=== PATIENT | female | born 1945 | race Caucasian/White ===

== ENCOUNTER → 2016-11-10 | Outpatient (CLI) | payer OTHER, BC ==
[~2016-11-10] MED LIST: ACET325T96 PO; ADVIN25/60 INH; ALBU18002 INH; AMLO10CA PO; ARTI1SOL8 OPB; ASPI-435 PO; CALC500C70 PO; CARV12.5 PO; COEN1CAP28 PO; CYAN30003 SL; DULA0.5I SQ; FLUT0.15 NAE; GLIM1TAB2 PO; HYDR2.5L TOP; HYDR25TA5 PO; LATA0.009 OPB; LORA-741 PO; MULT-506 PO; NXM/40 PO; OXYC-643 PO; VTMD1000 PO
[2016-11-10 17:48] LABS: BASO % 0.3 %; BASO ABS # 0.03 K/uL (0-0.2); COMPLETE YES; EOS % 1.4 %; HEMATOCRIT 40.2 % (37-47); IG% 0.4 %; LYMPH % 31.1 %; LYMPH ABS # 3.57 K/uL (1.2-3.4); MEAN CELL VOLUME 80.9 fL (80-100); MEAN CORPUSCULAR HGB CONC 32.1 g/dl (32-36); MONO % 6.4 %; NEUT % 60.4 %; PLATELET COUNT 227 K/uL (130-400); RED BLOOD COUNT 4.97 M/uL (4.2-5.4); WHITE BLOOD COUNT 11.48 K/uL (4.8-10.8)
[2016-11-10 17:51] LABS: ALT/SGPT 46 U/L (12-78); AST/SGOT 28 U/L (15-37); BLOOD UREA NITROGEN 17 mg/dl (7-18); BUN/CREATININE RATIO 18.9 (10-20); CARBON DIOXIDE 31 mmol/L (21-32); CHLORIDE 103 mmol/L (98-107); CHOLESTEROL 241 mg/dl (0-200); GLUCOSE 130 mg/dl (70-99); POTASSIUM 4.3 mmol/L (3.5-5.1); SODIUM 140 mmol/L (136-145); TRIGLYCERIDES 213 mg/dl (0-150); VERY LOW DENSITY LIPOPROT CALC 43 mg/dl
[2016-11-10 18:06] LABS: ALB/GLOB RATIO 0.9 (0.9-2); ALKALINE PHOSPHATASE 81 U/L (45-117); CHOLESTEROL/HDL RATIO 3.7; HDL CHOLESTEROL 65 mg/dl; LDL CHOLESTEROL CALCULATED 133 mg/dl
[2016-11-10 18:08] LABS: RATIO 6.9 mcg/mg (0-30.0)
[2016-11-11 06:12] LABS: ESTIMATED AVERAGE GLUCOSE 217 mg/dl; HA1C FLAG Normal (Normal)
== END | disposition home or self-care (01) ==
LOC: C.LABMFLN 07:46
PROVIDERS: ATTEND Family Medicine
DX: E11.9 Type 2 diabetes mellitus without complications (principal); E78.5 Hyperlipidemia, unspecified

== ENCOUNTER → 2017-01-03 | Outpatient (CLI) | payer OTHER, BC ==
[~2017-01-03] MED LIST changes: +ACET-24 PO; +RXC5 PO
[2017-01-03 13:40] LABS: ALB/GLOB RATIO 0.9 (0.9-2); ALKALINE PHOSPHATASE 55 U/L (45-117); ALT/SGPT 28 U/L (12-78); AST/SGOT 17 U/L (15-37); BLOOD UREA NITROGEN 11 mg/dl (7-18); BUN/CREATININE RATIO 14.3 (10-20); C-REACTIVE PROTEIN < 0.29 mg/dl (0-0.29); CALCIUM 8.5 mg/dl (8.5-10.1); CARBON DIOXIDE 34 mmol/L (21-32); CHLORIDE 109 mmol/L (98-107); CHOLESTEROL 226 mg/dl (0-200); CHOLESTEROL/HDL RATIO 3.9; CREATININE 0.78 mg/dl (0.60-1.20); GLUCOSE 151 mg/dl (70-99); HDL CHOLESTEROL 58 mg/dl; LDL CHOLESTEROL CALCULATED 136 mg/dl; POTASSIUM 4.5 mmol/L (3.5-5.1); SODIUM 146 mmol/L (136-145); TRIGLYCERIDES 158 mg/dl (0-150); VERY LOW DENSITY LIPOPROT CALC 32 mg/dl
[2017-01-03 13:56] LABS: BASO % 0.2 %; BASO ABS # 0.01 K/uL (0-0.2); EOS % 1.4 %; HEMATOCRIT 36.3 % (37-47); IG% 0.3 %; LYMPH % 35.2 %; LYMPH ABS # 2.34 K/uL (1.2-3.4); MEAN CELL VOLUME 83.1 fL (80-100); MEAN CORPUSCULAR HEMOGLOBIN 26.8 pg (25-34); MEAN PLATELET VOLUME 9.8 fL (7.4-10.4); MONO % 6.9 %; PLATELET COUNT 191 K/uL (130-400); RED BLOOD COUNT 4.37 M/uL (4.2-5.4); WHITE BLOOD COUNT 6.64 K/uL (4.8-10.8)
[2017-01-03 14:00] LABS: COMPLETE YES; MEAN CORPUSCULAR HGB CONC 32.2 g/dl (32-36)
== END | disposition home or self-care (01) ==
LOC: C.LABMFLN 08:39
PROVIDERS: ATTEND Internal Medicine Rheumatology
DX: M06.9 Rheumatoid arthritis, unspecified (principal)

== ENCOUNTER → 2017-02-22 | Outpatient (CLI) | payer OTHER, BC ==
[2017-02-22 13:43] LABS: ESTIMATED AVERAGE GLUCOSE 166 mg/dl; HA1C FLAG Normal (Normal)
[2017-02-22 13:54] LABS: BLOOD UREA NITROGEN 13 mg/dl (7-18); BUN/CREATININE RATIO 14.7 (10-20); CALCIUM 9.3 mg/dl (8.5-10.1); CARBON DIOXIDE 29 mmol/L (21-32); CHLORIDE 106 mmol/L (98-107); CREATININE 0.85 mg/dl (0.60-1.20); GLUCOSE 134 mg/dl (70-99); PHOSPHORUS 3.1 mg/dl (2.5-4.9); POTASSIUM 4.2 mmol/L (3.5-5.1); SODIUM 141 mmol/L (136-145)
== END | disposition home or self-care (01) ==
LOC: C.LABMFLN 09:59
PROVIDERS: ATTEND Family Medicine
DX: E11.9 Type 2 diabetes mellitus without complications (principal)

== ENCOUNTER → 2017-03-06 | Outpatient (CLI) | payer OTHER, BC | END | disposition home or self-care (01) | LOC: C.LABMFLN 14:10 | PROVIDERS: ATTEND Physician Assistant | DX: R30.0 Dysuria (principal) ==

== ENCOUNTER → 2017-03-28 | Outpatient (CLI) | payer OTHER, BC ==
[2017-03-28 13:42] LABS: BLOOD UREA NITROGEN 12 mg/dl (7-18); BUN/CREATININE RATIO 15.7 (10-20); CALCIUM 8.8 mg/dl (8.5-10.1); CARBON DIOXIDE 29 mmol/L (21-32); CHLORIDE 105 mmol/L (98-107); CREATININE 0.79 mg/dl (0.60-1.20); GLUCOSE 226 mg/dl (70-99); PHOSPHORUS 3.4 mg/dl (2.5-4.9); POTASSIUM 4.2 mmol/L (3.5-5.1); SODIUM 139 mmol/L (136-145)
== END | disposition home or self-care (01) ==
LOC: C.LABMFLN 07:58
PROVIDERS: ATTEND Family Medicine
DX: I10 Essential (primary) hypertension (principal)

== ENCOUNTER → 2017-04-06 | Outpatient (CLI) | payer OTHER, BC ==
--- NOTE | 2017-04-06 11:39 | DIAGNOSTIC IMAGING REPORT ---
CHEST 2 VIEWS ROUTINE HISTORY: 71 years-old Female R06.02 Exertional shortness of [id number] COMPARISON: Cervical spine radiographs 07/03/2016 TECHNIQUE: Frontal and lateral views of the chest FINDINGS: Cardiac mediastinal and hilar silhouettes are within normal limits. There is atherosclerosis of the aorta. No pneumothorax, pleural effusion, focal airspace consolidation or overt pulmonary edema. There is multilevel endplate spurring of the spine. Multilevel intervertebral disc space narrowing is also present. Patient obesity noted. IMPRESSION: No acute cardiopulmonary process. The above report was generated using voice recognition software. It may contain grammatical, syntax or spelling errors. Electronically signed by: James Galloway M.D. 04/06/2017 11:37 AM Dictated Date/Time: 04/06/2017 11:36 AM
--- NOTE | 2017-04-06 11:48 | DIAGNOSTIC IMAGING REPORT ---
CT OF THE HEAD WITHOUT CONTRAST CLINICAL HISTORY: Severe headache. COMPARISON STUDY: No previous studies for comparison. CT DOSE: 614.27 mGy.cm TECHNIQUE: Helical axial images of the head were obtained without IV contrast. Automated exposure control was utilized for the study. A dose lowering technique was utilized adhering to the principles of ALARA. FINDINGS: No acute intracranial hemorrhage, midline shift or mass effect is present. Brain volume is normal for age. Ventricular system is normal. Basilar cisterns are patent. Mcmahan-white differentiation is maintained. There are no findings to suggest acute dural sinus thrombosis or acute territorial infarct. An 8 mm hypodensity within the posterior left basal ganglia could reflect a prominent perivascular space or old lacunar infarct. There are no significant calvarial abnormalities. IMPRESSION: No acute intracranial findings. Electronically signed by: Tristen Parra M.D. 04/06/2017 11:47 AM Dictated Date/Time: 04/06/2017 11:44 AM
[2017-04-06 12:31] LABS: BASO % 0.1 %; BASO ABS # 0.01 K/uL (0-0.2); COMPLETE YES; EOS % 1.1 %; HEMATOCRIT 39.1 % (37-47); IG% 0.1 %; LYMPH % 24.1 %; LYMPH ABS # 1.74 K/uL (1.2-3.4); MEAN CELL VOLUME 85.6 fL (80-100); MEAN CORPUSCULAR HEMOGLOBIN 26.9 pg (25-34); MEAN CORPUSCULAR HGB CONC 31.5 g/dl (32-36); MEAN PLATELET VOLUME 10.1 fL (7.4-10.4); MONO % 6.2 %; NEUT % 68.4 %; PLATELET COUNT 209 K/uL (130-400); RED BLOOD COUNT 4.57 M/uL (4.2-5.4); WHITE BLOOD COUNT 7.21 K/uL (4.8-10.8)
[2017-04-06 13:13] LABS: BLOOD UREA NITROGEN 13 mg/dl (7-18); BUN/CREATININE RATIO 14.4 (10-20); CALCIUM 8.8 mg/dl (8.5-10.1); CARBON DIOXIDE 27 mmol/L (21-32); CHLORIDE 106 mmol/L (98-107); CREATININE 0.92 mg/dl (0.60-1.20); GLUCOSE 206 mg/dl (70-99); POTASSIUM 3.8 mmol/L (3.5-5.1); SODIUM 141 mmol/L (136-145)
[2017-04-06 13:18] LABS: PHOSPHORUS 3.6 mg/dl (2.5-4.9)
== END | disposition home or self-care (01) ==
LOC: C.CTS 10:39
PROVIDERS: ATTEND Family Medicine
DX: R51 Headache (principal); R06.02 Shortness of breath

== ENCOUNTER → 2017-04-18 | Outpatient (CLI) | payer OTHER, BC ==
[~2017-04-18] MED LIST changes: +REGADENOSON 0.4 MG/5 ML SYR ONE
== END | disposition home or self-care (01) ==
LOC: C.NUCL 09:07
PROVIDERS: ATTEND Family Medicine
DX: R07.89 Other chest pain (principal); R06.02 Shortness of breath

== ENCOUNTER 2017-05-17 09:14 | Inpatient (IN) | payer OTHER, BC ==
--- NOTE | 2017-04-18 18:49 | Myocardial Perfusion Study ---
Myocardial Perfusion Study Rpt Myocardial Perfusion Study Rpt Date of Service 04/18/2017 Myocardial Perfusion Study Rpt Procedure: 1. Myocardial perfusion study performed in multiple views/images 2. Lexiscan pharmacologic stress ECG Indications: 1. Atypical chest pain 2. Dyspnea with exertion Consent: Informed written consent was obtained prior to the procedure. Ordering physician: Dr. Hale Procedural details: For the stress portion of the study, Lexiscan 0.4 mg was intravenously administered followed by a saline flush. This was followed by 32.2 mCi of technetium 99m Cardiolite, injected at 11:30 a.m. on 04/18/2017. 30 minutes following the injection, imaging of the heart was performed in multiple projections. For the rest portion of the study, 10.3 mCi technetium 99m Cardiolite was injected intravenously at 9:45 a.m. on 04/18/2017. 1 hour following the injection, imaging of the heart was performed in the same projections. Lexiscan stress ECG: Resting ECG demonstrated: Sinus rhythm at 80 bpm Maximum heart rate: 97 bpm Resting blood pressure: 144/70 mmHg Maximum blood pressure: 147/70 mmHg Maximal, age-predicted heart rate: 65 % Significant ST changes: None Arrhythmia: None Symptoms: No chest pain reported. Findings: Rotating raw imaging demonstrated no significant lung uptake. There is no significant motion artifact. Heart size appeared normal. Myocardial perfusion demonstrated a very small area of mildly reduced uptake involving the distal anteroseptum which appeared to be fixed in post stress and rest imaging. With normal wall motion, this suggests artifact. There is no significant reversible defect to suggest ischemia. Ejection fraction: 70 % Wall motion: Normal No significant transient ischemic dilation. Impression: 1. No significant ischemic change suggested with Lexiscan myocardial perfusion study. 2. Very small distal anteroseptal fixed defect may represent attenuation artifact given normal wall motion. 3. No significant infarct suggested. 4. Hyperdynamic LV systolic function. EF 70%. 5. Normal wall motion. 6. No chest pain reported. 7. Nondiagnostic Lexiscan ECG.
[2017-04-25 11:26] VITALS: BMI 40.0
--- NOTE | 2017-04-25 12:06 | PAT Medication Instructions ---
Service Date Apr 25, 2017. Current Home Medication List Acetaminophen Tab (Tylenol), 650 MG PO Q6 PRN for Pain Albuterol Sulfate (Proair Respiclick), 2 PUFF INH Q4 PRN for SOB/Wheezing Artificial Tear Solution ([facility]vs Natural Tears 0.1-0.3 %), 1 DROP OPB UD PRN for DRY EYES Aspirin (Aspirin 81), 1 TAB PO QAM Calcium/Vitamin D (Os-Johnie 500 Plus D), 1 TAB PO QAM Cholecalciferol (Vitamin D3), 2,000 UNITS PO QAM Coenzyme Q10 (Ubidecarenone) (Co Q10), 200 MG PO QAM Cyanocobalamin (Vitamin B12), 1 TAB SL QAM Dulaglutide (Trulicity), 1 DOSE SQ WEEKLY Esomeprazole Magnesium (Nexium), 40 MG PO QAM Fluticasone Prop/Salmeterol (Advair Diskus 250/50 60 Dose), 1 PUFF INH BID Fluticasone Propionate (Nasal) (Flonase Allergy Relief), 2 SPRAY GENESIS DAILY PRN for PRN Glimepiride (Glimepiride), 0.5 TAB PO QAM Hydrochlorothiazide (Hydrochlorothiazide), 12.5 MG PO QAM Hydrocortisone (Topical) (Hydrocortisone), 1 APPLN TOP BID PRN for RASH Latanoprost (Xalatan 0.005% Oph Myrtle), 1 DROPS OPB HS Lorazepam (Ativan), 0.5 MG PO TID PRN for Anxiety Multivitamin (Multivitamin), 1 TAB PO QPM Oxycodone/Acetaminophen 5MG/325MG (Oxycodone/Acetaminophen 5MG/325MG), 1 TABLET PO Q4H PRN for Pain Medication Instructions For Your Scheduled Surgery -Continue as directed: Dulaglutide (Trulicity), 1 DOSE SQ WEEKLY - Hold the following medications 2 weeks prior to surgery: Coenzyme Q10 (Ubidecarenone) (Co Q10), 200 MG PO QAM - Hold the following medications 24 hours prior to surgery: Hydrocortisone (Topical) (Hydrocortisone), 1 APPLN TOP BID PRN for RASH - Hold the following medications the morning of surgery: Glimepiride (Glimepiride), 0.5 TAB PO QAM Hydrochlorothiazide (Hydrochlorothiazide), 12.5 MG PO QAM Calcium/Vitamin D (Os-Johnie 500 Plus D), 1 TAB PO QAM Cholecalciferol (Vitamin D3), 2,000 UNITS PO QAM Cyanocobalamin (Vitamin B12), 1 TAB SL QAM - Take the following medications the morning of surgery with a sip of water: Oxycodone/Acetaminophen 5MG/325MG (Oxycodone/Acetaminophen 5MG/325MG), 1 TABLET PO Q4H PRN for Pain (as needed up to four hours before surgery) Esomeprazole Magnesium (Nexium), 40 MG PO QAM Acetaminophen Tab (Tylenol), 650 MG PO Q6 PRN for Pain (as needed up to four hours before surgery) Albuterol Sulfate (Proair Respiclick), 2 PUFF INH Q4 PRN for SOB/Wheezing ( Use if needed, and BRING WITH YOU THE MORNING OF THE SURGERY) Artificial Tear Solution (Cvs Natural Tears 0.1-0.3 %), 1 DROP OPB UD PRN for DRY EYES (if needed) Aspirin (Aspirin 81), 1 TAB PO QAM Lorazepam (Ativan), 0.5 MG PO TID PRN for Anxiety Fluticasone Propionate (Nasal) (Flonase Allergy Relief), 2 SPRAY GENESIS DAILY PRN for PRN Fluticasone Prop/Salmeterol (Advair Diskus 250/50 60 Dose), 1 PUFF INH BID - Take the following medications as scheduled the night before surgery: Oxycodone/Acetaminophen 5MG/325MG (Oxycodone/Acetaminophen 5MG/325MG), 1 TABLET PO Q4H PRN for Pain Multivitamin (Multivitamin), 1 TAB PO QPM Latanoprost (Xalatan 0.005% Oph Myrtle), 1 DROPS OPB HS Artificial Tear Solution (Cvs Natural Tears 0.1-0.3 %), 1 DROP OPB UD PRN for DRY EYES Albuterol Sulfate (Proair Respiclick), 2 PUFF INH Q4 PRN for SOB/Wheezing Acetaminophen Tab (Tylenol), 650 MG PO Q6 PRN for Pain Lorazepam (Ativan), 0.5 MG PO TID PRN for Anxiety Fluticasone Propionate (Nasal) (Flonase Allergy Relief), 2 SPRAY GENESIS DAILY PRN for PRN Fluticasone Prop/Salmeterol (Advair Diskus 250/50 60 Dose), 1 PUFF INH BID If you have any questions please call us at [phone] or [phone] or [phone]
[2017-04-25 13:12] LABS: URINE APPEARANCE CLEAR (CLEAR); URINE BILIRUBIN NEG (NEG); URINE COLOR YELLOW; URINE NITRITE NEG (NEG); URINE PH 6.5 (4.5-7.5); URINE SPECIFIC GRAVITY 1.019 (1.000-1.030); UROBILINOGEN NEG (NEG); ZZUR CULT IF INDIC CLEAN CATCH NO
[2017-04-25 13:35] LABS: MANUAL MICROSCOPIC REQUIRED? NO; REVIEW REQ? NO
[2017-04-25 13:36] LABS: ESTIMATED AVERAGE GLUCOSE 171 mg/dl; HA1C FLAG Normal (Normal)
--- NOTE | 2017-05-16 17:18 | HISTORY & PHYSICAL EXAMINATION ---
DATE OF ADMISSION: 05/17/2017 CHIEF COMPLAINT: Chronic right shoulder pain. HISTORY OF PRESENT ILLNESS: This is a 71-year-old female patient of Dr. Garay'cuco complaining of chronic right shoulder pain, longstanding, now progressively getting worse. She has failed conservative treatment including intraarticular injections and conservative treatment for approximately 1 year. The patient has been diagnosed with end-stage osteoarthritis, per clinical and radiographic exams of her right shoulder and wishes to proceed with a right total shoulder arthroplasty. PAST MEDICAL HISTORY: Hypertension, asthma, sleep apnea with the use of CPAP, diabetes mellitus, rheumatoid arthritis, osteoarthritis, spine problems, neck problems, sciatica, acid reflux, and obesity. SOCIAL HISTORY: Nonsmoker, nondrinker. FAMILY HISTORY: Noncontributory. REVIEW OF SYSTEMS: The patient complains of chronic right shoulder pain. Otherwise, denies any shortness of breath, chest pain, nausea, vomiting or any other joint complaints. PAST SURGICAL HISTORY: Includes a carpal tunnel surgery and tonsillectomy. MEDICATIONS: Include: 1. Advair Diskus 250/50 one puff b.i.d. 2. Ventolin HFA 109 mcg inhalation aerosol 2 puffs every 4-6 hours as needed. 3. Esomeprazole magnesium 40 mg daily. 4. Vitamin D3 daily. 5. Vitamin B12 daily, CoQ10 daily, and Calcium daily. 6. Latanoprost 0.005% ophthalmic solution in both eyes at bedtime. 7. Lorazepam 0.5 mg b.i.d. p.r.n. 8. Triamcinolone acetonide 55 mcg. 9. Aerosol 2 sprays each nostril daily. 10. Fluticasone 50 mcg 2 sprays each nostril daily. 11. Nystatin as needed. 12. Hydrochlorothiazide 12.5 mg daily. 13. Glimepiride 1 mg daily. 14. Trulicity 1.5 mg per 0.5 mL solution injection weekly. 15. Hydrocortisone 2.5% external cream b.i.d. to affected area. 16. Artificial tears as needed. 17. Multivitamin daily. 18. Oxycodone a day as needed. 19. Nasacort allergy 2 puffs daily. 20. Aspirin 81 mg daily. ALLERGIES: INCLUDE BIAXIN, LEVAQUIN, BACTRIM, OXYBUTYNIN, PENICILLINS AND STATINS. PHYSICAL EXAMINATION: GENERAL: Well-developed, well-nourished 71-year-old female in no acute distress. She is alert and oriented x3 and pleasant. HEENT: Normocephalic, atraumatic. Extraocular motions are intact. Pupils are equal and reactive to light. HEART: Regular rate and rhythm, no murmurs appreciated. LUNGS: Clear. ABDOMEN: Soft and nontender, bowel sounds present. EXTREMITIES: Right shoulder reveals positive crepitation with passive range of motion. She has active range of motion of 0-170. She has 4/5 strength globally. NEUROLOGIC: Neurovascularly, she is intact in her right upper extremity. DIAGNOSES: Right shoulder end-stage osteoarthritis with a history of hypertension, asthma, chronic obstructive pulmonary disease with the use of CPAP, diabetes mellitus, rheumatoid arthritis, osteoarthritis, spine problems, neck problems, sciatica, acid reflux, and obesity. PLAN: The patient was advised of her diagnosis. Indications, risks, benefits, and postop course have all been reviewed. The patient wishes to proceed with a right total shoulder arthroplasty. Necessary consent forms, preoperative testing and clearances will be obtained.
[2017-05-17] VITALS (7 sets, daily range): BP systolic 131–147; BP diastolic 63–91; PULSE 73–93; TEMP 36.4–37.1; O2SAT 96–100; Ht 162.6 cm; Wt 107.5 kg
[~2017-05-17] VITALS: Ht 162.6 cm; Wt 107.5 kg
[~2017-05-17 09:14] MED LIST changes: -ACET-24 PO; +ACETAMINOPHEN 500 MG TAB PO SCH; -AMLO10CA PO; +ATROPINE SULFATE 0.1 MG/ML 5ML SYR IV PRN; -CARV12.5 PO; +CeleBREX 200 MG CAP PO SCH; +EpHEDrine SULFATE INJ 50 MG/ML AMP IV PRN; +FAMOTIDINE 20 MG TAB PO SCH; +FENTANYL CITRATE INJ 50 MCG/1 ML 2 ML VIAL IV PRN; +GABAPENTIN 300 MG CAP PO SCH; +LACTATED RINGER'S 1000ML 1,000 ML IV SCH; +LACTATED RINGER'S 1000ML IV SCH; +METOCLOPRAMIDE HCL 10 MG TAB PO SCH; +ONDANSETRON INJ 2 MG/ML 2 ML VIAL IV PRN; -REGADENOSON 0.4 MG/5 ML SYR ONE; +ROPIVACAINE 0.5% 5 MG/ML 30 ML VIAL ONE; -RXC5 PO; +VANCOMYCIN INJ 1,500 MG in SODIUM CHLORIDE 0.9% 500ML 500 ML IV SCH
[2017-05-17] MEDS ORDERED: FENTANYL CITRATE INJ 50 MCG/1 ML 2 ML VIAL ONE ×2 (11:08→15:28)
[2017-05-17] MEDS ORDERED: NEOSTIGMINE METHYLSULFATE 5 MG/5 ML SYR ONE (11:08)
[2017-05-17] MEDS ORDERED: MIDAZOLAM HCL 1 MG/ML 2ML VIAL ONE (11:08)
[2017-05-17] MEDS ORDERED: PROPOFOL IV EMULSION 10 MG/ML 20 ML VIAL IV ONE (11:08)
[2017-05-17] MEDS ORDERED: GLYCOPYRROLATE INJ 0.2 MG/ML VIAL ONE (11:08)
[2017-05-17] MEDS ORDERED: ROCURONIUM BROMIDE 10 MG/ML 5 ML VIAL IV ONE (11:08)
[2017-05-17] MEDS ORDERED: LIDOCAINE HCL 2% 2 ML VIAL (20MG/ML) ONE (11:08)
[2017-05-17] MEDS ORDERED: ONDANSETRON INJ 2 MG/ML 2 ML VIAL ONE (11:08)
[2017-05-17] MEDS ORDERED: DEXAMETHASONE SOD INJ 4 MG/ML VIAL ONE (11:08)
[2017-05-17] MEDS ORDERED: AMLO10CA PO (11:14)
[2017-05-17] MEDS ORDERED: CARV12.5 PO (11:14)
--- NOTE | 2017-05-17 12:00 | History & Physical Bridge Note ---
H&P Re-Evaluation Bridge Note: I have examined the patient, reviewed the History & Physical and in the interval since the performance of the History & Physical I have noted the following changes of clinical significance: No changes noted
[2017-05-17] MEDS ORDERED: BACITRACIN 50000 UNIT VIAL ONE (12:19)
[2017-05-17] MEDS ORDERED: EpINEphrine HCL INJ 1 MG/ML 5ML SYRINGE ONE (12:19)
--- NOTE | 2017-05-17 14:57 | [facility] Post Operative Brief Note ---
Immediate Operative Summary Operative Date May 17, 2017. Pre-Operative Diagnosis Right Shoulder End-Stage Osteoarthritis,morbid obesity bmi 40.7 Post-Operative Diagnosis Right Shoulder End-Stage Osteoarthritis,chronic biceps tenosynovitis bicipital groove bone spurs,morbid obesity Procedure(s) Performed Right Total Shoulder Arthroplasty,biceps tenodesis,increased difficulty due to obesity Surgeon Dr. Sampson Garay Player Development Manager Surgeon(s) Bucky Martinez PA-C Estimated Blood Loss 25ML Findings grade 4 djd oa glenohumeral ,intact rtc ,biceps tenosynovitis chronic Specimens Permanent: A. Right Humeral Head Drains 2 hemovac Anesthesia general and regional Complication(s) None Disposition Recovery Room / PACU
[2017-05-17] MEDS ORDERED: SOD PHOSPHATE/SOD BIPHOSPHATE ENEMA 132 ML BTL PR PRN (15:15)
[2017-05-17] MEDS ORDERED: BISACODYL 10 MG SUPP PR PRN (15:15)
[2017-05-17] MEDS ORDERED: MoRPHine SULFATE 2 MG/ML CARP IV PRN (15:15)
[2017-05-17] MEDS ORDERED: METOCLOPRAMIDE HCL INJ 5 MG/ML 2 ML VIAL IV PRN (15:15)
[2017-05-17] MEDS ORDERED: LORAZEPAM 0.5 MG TAB PO PRN (15:15)
[2017-05-17] MEDS ORDERED: MAGNESIUM HYDROXIDE SUSP 30 ML UDC PO PRN (15:15)
[2017-05-17] MEDS ORDERED: ZOLPIDEM TARTRATE 5 MG TAB PO PRN (15:15)
[2017-05-17] MEDS ORDERED: ONDANSETRON INJ 2 MG/ML 2 ML VIAL IV PRN (15:15)
[2017-05-17] MEDS ORDERED: FLUTICASONE PROPIONATE NA SPR 16 GM BTL NAE PRN (15:15)
[2017-05-17] MEDS ORDERED: GLUCAGON FOR INJ 1 MG VIAL SQ PRN ×2 (15:30→18:00)
[2017-05-17] MEDS ORDERED: ARTIFICIAL TEARS OP SOLN OPB PRN ×2 (15:30)
[2017-05-17] MEDS ORDERED: ALBUTEROL HFA 8 GM INHALER INH PRN (15:30)
[2017-05-17] MEDS ORDERED: GLUCOSE 10 TABS/TUBE PO PRN ×2 (15:30→18:00)
[2017-05-17] MEDS ORDERED: GLUCOSE 40% GEL 15 GM TUBE PO PRN ×2 (15:30→18:00)
[2017-05-17] MEDS ORDERED: DEXTROSE 50% 50 ML SYR IV PRN ×2 (15:30→18:00)
--- NOTE | 2017-05-17 16:01 | DIAGNOSTIC IMAGING REPORT ---
R SHOULDER MIN 2 VIEWS ROUTINE CLINICAL HISTORY: Post shoulder surgery COMPARISON STUDY: None. FINDINGS: The patient is status post a right total shoulder arthroplasty. Hardware is intact. No acute fracture or dislocation. Skin temitope and surgical drains are in place. IMPRESSION: Status post right total shoulder arthroplasty. No evidence for hardware complication. Electronically signed by: Marquise Gutierrez M.D. 05/17/2017 3:59 PM Dictated Date/Time: 05/17/2017 3:58 PM
--- NOTE | 2017-05-17 16:09 | Anesthesiology Progress Note ---
Anesthesia Post Op Note Date & Time May 17, 2017 at 16:09 Vital Signs Pain Intensity: 2 Vital Signs Past 12 Hours Date Time Temp Pulse Resp B/P (MAP) Pulse Ox O2 Delivery O2 Flow Rate FiO2 05/17/17 16:00 36.2 76 16 130/57 100 Nasal Cannula 2 05/17/17 15:50 36.2 76 16 140/61 100 Nasal Cannula 2 05/17/17 15:40 77 16 146/72 100 Nasal Cannula 2 05/17/17 15:30 75 16 146/60 100 Oxymask 10 05/17/17 15:20 72 16 139/60 100 Oxymask 10 05/17/17 15:11 36.1 69 16 124/62 100 Oxymask 10 05/17/17 10:10 36.9 88 20 131/63 98 Room Air Notes Mental Status: alert / awake / arousable, participated in evaluation Pt Amnestic to Procedure: Yes Nausea / Vomiting: adequately controlled Pain: adequately controlled Airway Patency, RR, SpO2: stable & adequate BP & HR: stable & adequate Hydration State: stable & adequate Anesthetic Complications: no major complications apparent
--- NOTE | 2017-05-17 16:32 | OPERATIVE REPORT ---
DATE OF OPERATION: 05/17/2017 INDICATIONS: The patient is a 71-year-old female with chronic progressive osteoarthritis of her right glenohumeral joint. She has had extensive conservative management, several injections. She has failed all conservative management. Her x-rays demonstrate she is bone on bone in glenohumeral joint with an inferior humeral head osteophyte typical for her end-stage osteoarthritis. There is concentric wear of the glenoid. PREOPERATIVE DIAGNOSIS: End-stage glenohumeral osteoarthritis of the right shoulder and morbid obesity, BMI 40.7. POSTOPERATIVE DIAGNOSIS: Same including chronic bicipital tenosynovitis with bicipital groove bone spurs. PROCEDURE: Right total shoulder arthroplasty, biceps tenodesis and debridement bicipital bone groove spurs and increased difficulty morbid obesity, BMI 40.7. SURGEON: Dr. Garay. ENROLLMENT SERVICES DEAN: Bucky Martinez PA-C. ANESTHESIA: Regional block and general. OPERATIVE PROCEDURE: The patient was taken to the operative room, anesthetized with regional block and general anesthetic. She was positioned about a 30-40 degree beach chair position on the operating room table. She has TEDs and SCDs placed. She had a Phelps catheter placed at her request. She was very obese and a large pannus. We were able to translate her to the right side of the bed, placed a towel roll under medial border right scapula. We were able to manipulate the shoulder off the bed as necessary. We also placed her head on a foam headrest and we placed protective eyewear. Shoulder exam preop was 150 degrees of forward elevation, 90 degrees of adduction and 45 degrees of external rotation. She had bone on bone crepitation of the glenohumeral joint. He had very obese shoulder, arm and chest area. Her shoulder was then sterilely prepped and draped with ChloraPrep. An anterior deltopectoral approach was performed, skin incised sharply. A deep layer fat was divided down to the fascia. The subcutaneous bleeders were cauterized. The cephalic vein was dissected out and retracted laterally with the deltoid. The deltopectoral was dissected down to the clavipectoral fascia which was divided at the lateral margin conjoined tendon and strap muscle. This was divided up to the level of the CA ligament which was preserved. Subscapularis and supraspinatus rotator cuff bursa was all resected to visualize a complete intact rotator cuff. The biceps tendon had significant tenosynovitis over the biceps. We did release the inferior 1 cm of the pectoralis tendon for inferior exposure and excised the thickened tenosynovium around the biceps tendon and then as I dissected this up in the bicipital groove there was noted to be a large bicipital bone grew spurs so we debrided those. I went ahead and then tenodesed the biceps to the pectoralis tendon with [id number] #2 FiberWire, resected the biceps proximally. The circumflex vessels were identified, tied off with silk ties and divided laterally. The rotator interval was opened up and extended out to the lateral articular surface area. The joint effusion was evacuated. The muscle fibers of the subscapularis were split in the direction of their fibers at the level of the circumflex vessels inferiorly and they were divided down to the capsule. Then they were reflected up in the inferior capsule with a soft tissue Kitner elevator. The axial nerve was palpated and identified with tug test and protected with a blunt Hohmann retractor. Then the subscapularis was taken down with a transtendinous incision leaving a cuff of tissue for repair on the lesser tuberosity. The subscapularis was tagged with a #1 Vicryl suture. Then the capsule was released off the neck of the humerus exposing the large inferior humeral osteophytes which we resected with artist chisel and a rongeur to remove the fragments. The humeral head was down to eburnated exposed bone in the mid section of the humeral head. At this time, I retracted the humeral head posterior to the glenoid with a Fukuda retractor. Then I exposed the glenoid which was also completely eburnated bone with no articular cartilage on the glenoid. There was concentric type wear of the glenoid. The capsule was then released down to the glenoid. The anterior capsule was released off the glenoid. Then rotator interval capsule was released down to the anterior release creating a 360 degree release of the subscapularis. This subscapularis tendon and muscle was retracted anteriorly and Fukuda retractor was placed on the neck of the glenoid. The glenoid labrum was resected circumferentially and the biceps tendon was resected off the superior glenoid. I did a capsular release anterior inferiorly and posterior inferiorly using electrocautery on bone with the axillary nerve protected inferiorly. Then the humeral head was exposed with extension and external rotation. I made anatomic neck cut with an oscillating saw and then sized the humeral head to be a 46 mm diameter. The humerus was then retracted posterior to the glenoid exposing the glenoid. The glenoid was sized for a 44 mm diameter glenoid component. We used the Affiniti CortiLoc glenoid component from [employer] and the Ascend Flex humeral component from [employer]. The central drill hole was made into the glenoid followed by the glenoid reamer followed by widening the central hole for the central peg of the implant and then placing the guide for the peripheral peg holes, which were drilled and then after copious irrigation with antibiotic solution of bacitracin, the drill holes were dried and then packed with epinephrine soaked sponges. Then we mixed the Palacos G cement with vacuum mixing technique and then cemented the 44 mm Affiniti CortiLoc implant into position with the central peg press fit and peripheral peg cemented base of the central peg cemented. The implant was held in place until cement cured. All excess cement was cleared. Then attention was taken to the humerus preparation. Humerus was exposed again with extension and external rotation. Retractors were placed and centralizing awl was used followed by broach sizers up to a 5 which had appropriate fit and fill. The box osteotome was used and then we used broaches up to a 5 which had appropriate fit and fill. Then we went ahead with a 46 high offset trial head, then we did trial reduction and range of motion and stability was satisfactory. Then, the trials were removed. Transosseous #5 FiberWire sutures were placed around the lesser tuberosity in the hard bone of the bicipital groove. Then after more irrigation with antibiotic solution with bacitracin the final components were assembled taking note of the offset position. The 46 x 17 high offset Ascend Flex humeral head was assembled to the shortest Ascend Flex 5A stem and then this implant was impacted into the humerus with a tight press fit. The humerus was reduced to the glenoid. Stability was verified and then we went ahead and repaired the subscapularis with the #5 FiberWire sutures using Simone-Rickie suture technique. Then we did lateral soft tissue fixation with [id number] #2 FiberWire and the rotator interval was closed maximal external rotation with interrupted #2 FiberWire. The pectoralis was repaired with a aehyor-[id number] #2 FiberWire reinforced device. Tenodesis was sutured to the biceps again. The shoulder was taken through range of motion and then the patient had 160 degrees of forward elevation, 90 degrees adduction and 55-60 degrees of external rotation without any tension on the repair. The shoulder was stable. The wound was irrigated again and then 2 Hemovac drains were placed laterally. These were placed deep in the deltopectoral interval. Then we closed the deltopectoral interval with [id number] #1 Vicryl suture, subcutaneous tissues closed with interrupted 2-0 Vicryl, skin closed with temitope and sterile dressed were applied and the patient had about 25 mL blood loss at the time of procedure. Bucky Martinez PA-C was my practice assistant. He functioned as practice assistant for the entire procedure. He assisted in patient positioning, prepping, draping, arm positioning, instrument management, soft tissue retraction, and performed the subcutaneous and skin closure and will participate in postoperative care of the patient. I attest to the content of the Intraoperative Record and any orders documented therein. Any exceptions are noted below. GRETA
[2017-05-17] MEDS: INSULIN ASPART 100 UNITS/ML 3 ML PEN SC SCH ×3 (17:15→20:59)
[2017-05-17] MEDS ORDERED: HydrALAZINE HCL 20 MG/ML VIAL IV. PRN (18:00)
--- NOTE | 2017-05-17 18:07 | Medical Consult ---
Consultation Date of Consultation: May 17, 2017. Attending Physician: Sampson Garay M.D. Reason for Consultation: Medical management History of Present Illness This is a 71 y/o female with a history of HTN, HLD, FE, asthma, DM II, RA, anxiety and depression, glaucoma, h/o iron deficiency anemia and GERD who presents s/p right TSA with Dr. Garay on 05/17 for medical management. The patient reports feeling well. She does still have some numbness/tingling in her right fingers and complains of soreness on the right side of her neck. She also has a sore throat. She is tolerating a PO diet well and has a Phelps catheter in place. She denies passing gas or having a bowel movement yet postoperatively. The patient denies fevers, chills, sweats, chest pain, palpitations, claudication, cough, wheezing, shortness of breath, nausea, vomiting, abdominal pain, dysuria, hematuria, urinary retention, paralysis, weakness. Past Medical/Surgical History HTN HLD FE Asthma DM II RA Anxiety and depression Glaucoma GERD H/o ALYCIA Family History Cancer Diabetes mellitus Heart disease Hypertension Social History Smoking Status: Never Smoker Smokeless Tobacco Use: No Alcohol Use: occasionally Drug Use: none Marital Status: Housing Status: lives with significant other Occupation Status: retired Allergies Coded Allergies: Clarithromycin (Verified Allergy, Unknown, PT UNSURE OF RXN, OCCURED A CHILD, 05/17/17) Levofloxacin (Verified Allergy, Unknown, PT UNSURE OF RXN, 05/17/17) Oxybutynin (Verified Allergy, Unknown, CAUSED HIGH BP, 05/17/17) Penicillins (Verified Allergy, Unknown, UNSURE OF RXN, PT STATES OCCURED A CHILD, 05/17/17) Sulfamethoxazole w/Trimethoprim (Verified Allergy, Unknown, UNSURE OF RXN , PT STATES OCCURED A CHILD, 05/17/17) Statins (Verified Adverse Reaction, Mild, MUSCLE ACHES AND PAIN, 05/17/17) Current Inpatient Medications Current Inpatient Medications Medications (Trade) Dose Ordered Sig/Stan Route Start Time Stop Time Status Last Admin Dose Admin Lactated Ringer's 1,000 ml @ 60 mls/hr [id number] IV 05/17/17 06:00 05/17/17 22:39 05/17/17 10:11 60 MLS/HR Acetaminophen (Tylenol Tab) 1,000 mg PREOP PO 05/17/17 06:00 05/17/17 18:00 05/17/17 10:27 1,000 MG Celecoxib (CeleBREX CAP) 200 mg PREOP PO 05/17/17 06:00 05/17/17 18:00 Famotidine (Pepcid Tab) 20 mg PREOP PO 05/17/17 06:00 05/17/17 18:00 05/17/17 10:27 20 MG Gabapentin (Neurontin Cap) 300 mg PREOP PO 05/17/17 06:00 05/17/17 18:00 05/17/17 10:26 300 MG Metoclopramide HCl (Reglan Tab) 10 mg PREOP PO 05/17/17 06:00 05/17/17 18:00 05/17/17 10:27 10 MG Vancomycin HCl 1500 mg/Sodium Chloride 530 ml @ 200 mls/hr PREOP IV 05/17/17 06:00 05/18/17 05:59 05/17/17 10:10 200 MLS/HR Lactated Ringer's 1,000 ml @ 15 mls/hr Q24H IV 05/17/17 06:00 05/18/17 05:59 Aspirin (Ecotrin Tab) 81 mg QAM PO 05/18/17 09:00 06/17/17 08:59 Calcium/Vitamin D (Caltrate Plus Tab) 1 tab QAM PO 05/18/17 09:00 06/17/17 08:59 Carvedilol (Coreg Tab) 12.5 mg BID PO 05/17/17 21:00 06/16/17 20:59 Cholecalciferol (Vitamin D Tab) 1,000 inter.unit QAM PO 05/18/17 09:00 06/17/17 08:59 Salmeterol Xinafoate/ Fluticasone (Advair Diskus 250/50 Inh) 1 puff BID INH 05/17/17 21:00 06/16/17 20:59 Fluticasone Propionate (Flonase Nasal [place]) 2 sprays DAILY PRN GENESIS 05/17/17 15:15 06/16/17 15:14 Hydrochlorothiazide (Hydrochlorothiazide Tab) 12.5 mg QAM PO 05/18/17 09:00 06/17/17 08:59 Latanoprost (Xalatan Oph Soln) 1 drops HS OPB 05/17/17 21:00 06/16/17 20:59 Lorazepam (Ativan Tab) 0.5 mg TID PRN PO 05/17/17 15:15 06/16/17 15:14 Albuterol (Ventolin Hfa Inhaler) 2 puffs Q4 PRN INH 05/17/17 15:30 06/16/17 15:29 Benazepril HCl (Lotensin Tab) 20 mg QAM PO 05/18/17 09:00 06/17/17 08:59 Artificial Tears (Artificial Tears) 1 drops UD PRN OPB 05/17/17 15:30 06/16/17 15:29 Diphenhydramine HCl (Benadryl Cap) 25 mg Q8 PRN PO 05/17/17 15:15 06/16/17 15:14 Zolpidem Tartrate (Ambien Tab) 5 mg HSZ PRN PO 05/17/17 15:15 06/16/17 15:14 Metoclopramide HCl (Reglan Inj) 10 mg Q6H PRN IV 05/17/17 15:15 06/16/17 15:14 Ondansetron HCl (Zofran Inj) 4 mg Q6H PRN IV 05/17/17 15:15 06/16/17 15:14 Pantoprazole Sodium (Protonix Tab) 40 mg QAM PO 05/18/17 09:00 06/17/17 08:59 Potassium Chloride 10 meq/ Sodium Chloride 1,005 ml @ 100 mls/hr Q10H3M IV 05/17/17 16:00 05/18/17 15:59 Vancomycin HCl 1500 mg/Sodium Chloride 530 ml @ 125 mls/hr Q12H IV 05/17/17 22:00 05/18/17 02:15 Oxycodone HCl (Roxicodone Immediate Rel Tab) `1-2 TABS FOR PAIN `1 TAB... Q4H PRN PO 05/17/17 15:15 05/31/17 15:14 Acetaminophen (Tylenol Tab) 1,000 mg Q8 PO 05/17/17 22:00 06/16/17 21:59 Morphine Sulfate (MoRPHine SULFATE INJ) 2 mg Q2H PRN IV 05/17/17 15:15 05/31/17 15:14 Magnesium Hydroxide (Milk Of Magnesia Susp) 30 ml Q6H PRN PO 05/17/17 15:15 06/16/17 15:14 Bisacodyl (Dulcolax Supp) 10 mg DAILY PRN SC 05/17/17 15:15 06/16/17 15:14 Sodium Biphosphate/ Sodium Phosphate (Fleet Enema) 132 ml DAILY PRN SC 05/17/17 15:15 06/16/17 15:14 Docusate Sodium (coLACE CAP) 100 mg BID PO 05/17/17 21:00 06/16/17 20:59 Multivitamins (Multivitamin Tab) 1 tab DAILY PO 05/18/17 09:00 06/17/17 08:59 Insulin Aspart (novoLOG ASPART) SLIDING SCALE G... ACHS SC 05/17/17 16:00 06/16/17 15:59 Morphine Sulfate (MoRPHine SULFATE INJ) 4 mg Q2H PRN IV 05/17/17 15:30 05/31/17 15:29 Glucose (Glucose 40% Gel) 15-30 GRAMS 15 GRAMS... UD PRN PO 05/17/17 15:30 06/16/17 15:29 Glucose (Glucose Chew Tab) 4-8 Tablets 4 Tabl... UD PRN PO 05/17/17 15:30 06/16/17 15:29 Dextrose (Dextrose 50% 50ML Syringe) 25-50ML OF 50% DW IV FOR... UD PRN IV 05/17/17 15:30 06/16/17 15:29 Glucagon (Glucagon Inj) 1 mg UD PRN SQ 05/17/17 15:30 06/16/17 15:29 Amlodipine Besylate (Norvasc Tab) 10 mg QAM PO 05/18/17 09:00 06/17/17 08:59 Review of Systems See HPI for pertinent positives and negatives. All other systems reviewed and negative. Physical Exam Date Time Temp Pulse Resp B/P (MAP) Pulse Ox O2 Delivery O2 Flow Rate FiO2 05/17/17 17:14 36.4 80 16 147/76 (99) 100 Nasal Cannula 3.0 05/17/17 16:30 97 Nasal Cannula 2.0 05/17/17 16:30 36.5 73 18 136/73 (94) 97 Nasal Cannula 2.0 05/17/17 16:10 36.2 76 16 138/61 100 Nasal Cannula 2 05/17/17 16:00 36.2 76 16 130/57 100 Nasal Cannula 2 05/17/17 15:50 36.2 76 16 140/61 100 Nasal Cannula 2 05/17/17 15:40 77 16 146/72 100 Nasal Cannula 2 05/17/17 15:30 75 16 146/60 100 Oxymask 10 05/17/17 15:20 72 16 139/60 100 Oxymask 10 05/17/17 15:11 36.1 69 16 124/62 100 Oxymask 10 05/17/17 10:10 36.9 88 20 131/63 98 Room Air General appearance: +Morbidly obese. Well-developed, well-nourished, no apparent distress Head: Normocephalic, atraumatic Eyes: Normal inspection, PERRL, EOMI ENT: Normal ENT inspection, hearing grossly normal, pharynx normal Neck: Supple, no JVD, trachea midline Respiratory/Chest: Lungs clear to auscultation, normal breath sounds, no respiratory distress Cardiovascular: Regular rate & rhythm, no gallop, no murmur Abdomen/GI: Normal bowel sounds, non-tender, soft Extremities/Musculoskeletal: +Right shoulder dressed w/drain in place. RUE in sling. Normal inspection, no calf tenderness, no pedal edema Neurological/Psych: Alert, normal mood/affect, oriented x 3 Skin: Normal color, warm/dry, no rash Laboratory Results Last 24 Hours Test 05/17/17 10:04 05/17/17 15:27 Bedside Glucose 144 mg/dl 87 mg/dl Assessment & Plan 71 y/o female with a history of HTN, HLD, FE, asthma, DM II, RA, anxiety and depression, glaucoma, h/o iron deficiency anemia and GERD who presents s/p right TSA with Dr. Garay on 05/17 for medical management. S/p Right TSA--POD #0 -Pain management, DVT prophylaxis, and PT/OT as per primary team -AVSS HTN--stable -Hold benazepril and HCTZ until renal function checked/stable -Continue amlodipine 10 mg PO qd, Coreg 12.5 mg PO BID -Cover with hydralazine 10 mg IV q6h prn SBP >180 FE -CPAP at nighttime Asthma -Continue Advair BID and albuterol inhaler prn SOB/wheezing DM II--last HgbA1c checked 04/25/17 was 7.6 -Hold glimepiride and Trulicity -Insulin sliding scale -Check BSGs q ac and qhs Anxiety and depression -Continue Ativan 0.5 mg PO BID prn anxiety Glaucoma -Continue latanoprost drops GERD -Nexium converted to Protonix 40 mg PO qd Thank you for this consultation. We will continue to follow. Resident Physician Supervision Note: Pt seen/evaluated independently. I discussed the case with the resident and agree with the findings and plan as documented in the note. Any exceptions or clarifications are listed here: 71 y/o F HTN, HPL, FE, asthma, DM II, RA anemia - post right TSA - we are consulted for post-op medical management Does not have any specific complaints - pain is controlled - denies SOB, N/V, lighthead OE AAO x 3 S1,2 R CTAB NT, ND No CCE P: Asthma - controlled - cont NH - no additional needed at present HTN - Diuretics held pending AM labs/eval - cont Norvasc DM - SS post-op Anemia - repeat CB for AM Documented By: Jaron Hernandez
[2017-05-17] MEDS: POTASSIUM CHLORIDE INJ 10 MEQ in SODIUM CHLORIDE 0.9% 1000ML 1,000 ML IV SCH (18:34)
[2017-05-17 18:58] LABS: HEMATOCRIT 36.8 % (37-47); MEAN CELL VOLUME 83.4 fL (80-100); MEAN CORPUSCULAR HEMOGLOBIN 27.2 pg (25-34); MEAN CORPUSCULAR HGB CONC 32.6 g/dl (32-36); MEAN PLATELET VOLUME 9.7 fL (7.4-10.4); PLATELET COUNT 166 K/uL (130-400); RED BLOOD COUNT 4.41 M/uL (4.2-5.4); WHITE BLOOD COUNT 14.06 K/uL (4.8-10.8)
[2017-05-17 19:28] LABS: BUN/CREATININE RATIO 19.2 (10-20); CALCIUM 8.4 mg/dl (8.5-10.1); CREATININE 0.83 mg/dl (0.60-1.20); POTASSIUM 3.8 mmol/L (3.5-5.1)
[2017-05-17] MEDS: LATANOPROST 0.005% OP SOLN 2.5 ML BTL OPB SCH (20:56)
[2017-05-17] MEDS: CARVEDILOL 12.5 MG TAB PO SCH (20:56)
[2017-05-17] MEDS: FLUTICASONE/SALMETEROL 250/50 (ADVAIR) 14 PUFF/1 INHALER INH SCH (20:56)
[2017-05-17] MEDS: DOCUSATE SODIUM 100 MG CAP PO SCH (20:57)
[2017-05-17] MEDS: ACETAMINOPHEN 500 MG TAB PO SCH (21:37)
[2017-05-17] MEDS ORDERED: VANCOMYCIN INJ 1,500 MG in SODIUM CHLORIDE 0.9% 500ML 500 ML IV SCH (22:00)
[2017-05-17] MEDS: OXYCODONE HCL IR 5 MG TAB (IMMEDIATE RELEASE) PO PRN (23:30)
[2017-05-18] MEDS: MoRPHine SULFATE 4 MG/ML 1 ML CARP\\VIAL IV PRN ×3 (00:29→10:07)
[2017-05-18] MEDS: POTASSIUM CHLORIDE INJ 10 MEQ in SODIUM CHLORIDE 0.9% 1000ML 1,000 ML IV SCH (02:02)
[2017-05-18 03:24] VITALS: BP 128/78; PULSE 93; TEMP 36.8; O2SAT 91
[2017-05-18] MEDS: OXYCODONE HCL IR 5 MG TAB (IMMEDIATE RELEASE) PO PRN ×2 (03:55→08:35)
[2017-05-18] MEDS: ACETAMINOPHEN 500 MG TAB PO SCH ×3 (05:33→21:19)
[2017-05-18 07:22] VITALS: BP 143/87; PULSE 91; TEMP 36.8; O2SAT 96
[2017-05-18 07:37] LABS: HEMATOCRIT 35.5 % (37-47); MEAN CELL VOLUME 83.3 fL (80-100); MEAN CORPUSCULAR HEMOGLOBIN 27.2 pg (25-34); MEAN CORPUSCULAR HGB CONC 32.7 g/dl (32-36); PLATELET COUNT 150 K/uL (130-400); RED BLOOD COUNT 4.26 M/uL (4.2-5.4); WHITE BLOOD COUNT 9.78 K/uL (4.8-10.8)
[2017-05-18 07:50] LABS: BUN/CREATININE RATIO 13.8 (10-20); CALCIUM 8.2 mg/dl (8.5-10.1); CREATININE 0.77 mg/dl (0.60-1.20); POTASSIUM 3.9 mmol/L (3.5-5.1)
--- NOTE | 2017-05-18 08:13 | Orthopedic Progress Note ---
Orthopedic Progress Note Date of Service May 18, 2017. Subjective Post OP Day: 1 Reports: feeling well, pain controlled w PO medications, Denies: complaints, chest pain, SOB, nausea / vomiting, light headedness, calf pain Objective N/V intact, capillary refill less than 2 sec., dressing C/D/I, A&O x3 Sling in tact, fingers mobile. Date Time Temp Pulse Resp B/P (MAP) Pulse Ox O2 Delivery O2 Flow Rate FiO2 05/18/17 07:22 36.8 91 19 143/87 (105) 96 Room Air 05/18/17 03:24 36.8 93 16 128/78 (95) 91 Room Air 05/17/17 23:39 Room Air 05/17/17 22:58 36.8 93 16 146/77 (100) 96 Room Air 05/17/17 19:36 37.1 93 16 144/84 (104) 99 2.0 05/17/17 18:39 36.7 93 16 143/82 (102) 100 Nasal Cannula 2.0 05/17/17 17:30 36.4 80 18 141/91 (108) 97 Nasal Cannula 2.0 05/17/17 17:14 36.4 80 16 147/76 (99) 100 Nasal Cannula 3.0 05/17/17 16:30 97 Nasal Cannula 2.0 05/17/17 16:30 97 Nasal Cannula 2.0 05/17/17 16:30 36.5 73 18 136/73 (94) 97 Nasal Cannula 2.0 05/17/17 16:10 36.2 76 16 138/61 100 Nasal Cannula 2 05/17/17 16:00 36.2 76 16 130/57 100 Nasal Cannula 2 05/17/17 15:50 36.2 76 16 140/61 100 Nasal Cannula 2 05/17/17 15:40 77 16 146/72 100 Nasal Cannula 2 05/17/17 15:30 75 16 146/60 100 Oxymask 10 05/17/17 15:20 72 16 139/60 100 Oxymask 10 05/17/17 15:11 36.1 69 16 124/62 100 Oxymask 10 05/17/17 10:10 36.9 88 20 131/63 98 Room Air Laboratory Results 24 Hours: Test 05/17/17 18:39 05/18/17 06:50 Hematocrit 36.8 % 35.5 % Hemoglobin 12.0 g/dL 11.6 g/dL Assessment & Plan Assessment: POD #1, Right shoulder TSA, biceps tenodesis Plan: PT/ OT DVT proph- ASA Disposition- [facility] As per medicine Inhouse Planning Pain Management: Morphine, PO Tylenol, Oxy IR DVT Prophylaxis: SCDs, ASA Discharge Planning Discharge Planning: [facility] Pain Management: PO Tylenol, Oxy IR DVT Prophylaxis: SCDs, ASA Therapy: Physical Therapy, Occupational Therapy
[2017-05-18] MEDS: FLUTICASONE/SALMETEROL 250/50 (ADVAIR) 14 PUFF/1 INHALER INH SCH ×2 (08:35→21:19)
[2017-05-18] MEDS: CARVEDILOL 12.5 MG TAB PO SCH ×2 (08:36→21:18)
[2017-05-18] MEDS: DOCUSATE SODIUM 100 MG CAP PO SCH ×2 (08:36→21:18)
[2017-05-18] MEDS: ASPIRIN 81 MG ECTAB PO SCH (08:36)
[2017-05-18] MEDS: AMLODIPINE BESYLATE 5 MG TAB PO SCH (08:37)
[2017-05-18] MEDS: BENAZEPRIL HCL 10 MG TAB PO SCH (08:37)
[2017-05-18] MEDS: MULTIVITAMIN TAB PO SCH (08:38)
[2017-05-18] MEDS: PANTOprazole SOD 40 MG TAB PO SCH (08:38)
[2017-05-18] MEDS: CALCIUM 600MG + VIT D 400 IU TAB PO SCH (08:38)
[2017-05-18] MEDS: CHOLECALCIFEROL 1000 INTER.UNIT TAB PO SCH (08:39)
[2017-05-18] MEDS: INSULIN ASPART 100 UNITS/ML 3 ML PEN SC SCH ×4 (08:47→20:51)
[2017-05-18] MEDS ORDERED: HYDROCHLOROTHIAZIDE 25 MG TAB PO SCH (09:00)
--- NOTE | 2017-05-18 09:25 | Progress Note ---
Subjective Date of Service: May 18, 2017. Subjective Pt evaluation today including: conversation w/ patient, physical exam, lab review, review of inpatient medication list Pain: moderate in right shoulder PO Intake: excellent Voiding: no voiding problems patient doing well post op, pain is controlled reasonably well eating well, drinking no chest pain or dyspnea reviewed labs, Hb stable, Cr stable Review of Systems Musculoskeletal: + joint pain (right shoulder) All Other Systems: Reviewed and Negative Medications Current Inpatient Medications Medications (Trade) Dose Ordered Sig/Stan Route Start Time Stop Time Status Last Admin Dose Admin Aspirin (Ecotrin Tab) 81 mg QAM PO 05/18/17 09:00 06/17/17 08:59 05/18/17 08:36 81 MG Calcium/Vitamin D (Caltrate Plus Tab) 1 tab QAM PO 05/18/17 09:00 06/17/17 08:59 05/18/17 08:38 1 TAB Carvedilol (Coreg Tab) 12.5 mg BID PO 05/17/17 21:00 06/16/17 20:59 05/18/17 08:36 12.5 MG Cholecalciferol (Vitamin D Tab) 1,000 inter.unit QAM PO 05/18/17 09:00 06/17/17 08:59 05/18/17 08:39 1,000 INTER.UNIT Salmeterol Xinafoate/ Fluticasone (Advair Diskus 250/50 Inh) 1 puff BID INH 05/17/17 21:00 06/16/17 20:59 05/18/17 08:35 1 PUFF Fluticasone Propionate (Flonase Nasal [place]) 2 sprays DAILY PRN GENESIS 05/17/17 15:15 06/16/17 15:14 Hydrochlorothiazide (Hydrochlorothiazide Tab) 12.5 mg QAM PO 05/18/17 09:00 06/17/17 08:59 Future Hold Latanoprost (Xalatan Oph Soln) 1 drops HS OPB 05/17/17 21:00 06/16/17 20:59 05/17/17 20:56 1 DROPS Lorazepam (Ativan Tab) 0.5 mg TID PRN PO 05/17/17 15:15 06/16/17 15:14 Albuterol (Ventolin Hfa Inhaler) 2 puffs Q4 PRN INH 05/17/17 15:30 06/16/17 15:29 Benazepril HCl (Lotensin Tab) 20 mg QAM PO 05/18/17 09:00 06/17/17 08:59 Future Hold 05/18/17 08:37 20 MG Artificial Tears (Artificial Tears) 1 drops UD PRN OPB 05/17/17 15:30 06/16/17 15:29 Diphenhydramine HCl (Benadryl Cap) 25 mg Q8 PRN PO 05/17/17 15:15 06/16/17 15:14 Zolpidem Tartrate (Ambien Tab) 5 mg HSZ PRN PO 05/17/17 15:15 06/16/17 15:14 Metoclopramide HCl (Reglan Inj) 10 mg Q6H PRN IV 05/17/17 15:15 06/16/17 15:14 Ondansetron HCl (Zofran Inj) 4 mg Q6H PRN IV 05/17/17 15:15 06/16/17 15:14 Pantoprazole Sodium (Protonix Tab) 40 mg QAM PO 05/18/17 09:00 06/17/17 08:59 05/18/17 08:38 40 MG Potassium Chloride 10 meq/ Sodium Chloride 1,005 ml @ 100 mls/hr Q10H3M IV 05/17/17 16:00 05/18/17 15:59 05/18/17 02:02 100 MLS/HR Oxycodone HCl (Roxicodone Immediate Rel Tab) `1-2 TABS FOR PAIN `1 TAB... Q4H PRN PO 05/17/17 15:15 05/31/17 15:14 05/18/17 08:35 10 MG Acetaminophen (Tylenol Tab) 1,000 mg Q8 PO 05/17/17 22:00 06/16/17 21:59 05/18/17 05:33 1,000 MG Morphine Sulfate (MoRPHine SULFATE INJ) 2 mg Q2H PRN IV 05/17/17 15:15 05/31/17 15:14 Magnesium Hydroxide (Milk Of Magnesia Susp) 30 ml Q6H PRN PO 05/17/17 15:15 06/16/17 15:14 Bisacodyl (Dulcolax Supp) 10 mg DAILY PRN AL 05/17/17 15:15 06/16/17 15:14 Sodium Biphosphate/ Sodium Phosphate (Fleet Enema) 132 ml DAILY PRN AL 05/17/17 15:15 06/16/17 15:14 Docusate Sodium (coLACE CAP) 100 mg BID PO 05/17/17 21:00 06/16/17 20:59 05/18/17 08:36 100 MG Multivitamins (Multivitamin Tab) 1 tab DAILY PO 05/18/17 09:00 06/17/17 08:59 05/18/17 08:38 1 TAB Insulin Aspart (novoLOG ASPART) SLIDING SCALE G... ACHS SC 05/17/17 16:00 06/16/17 15:59 05/18/17 08:47 11 UNITS Morphine Sulfate (MoRPHine SULFATE INJ) 4 mg Q2H PRN IV 05/17/17 15:30 05/31/17 15:29 05/18/17 05:44 4 MG Glucose (Glucose 40% Gel) 15-30 GRAMS 15 GRAMS... UD PRN PO 05/17/17 15:30 06/16/17 15:29 Glucose (Glucose Chew Tab) 4-8 Tablets 4 Tabl... UD PRN PO 05/17/17 15:30 06/16/17 15:29 Dextrose (Dextrose 50% 50ML Syringe) 25-50ML OF 50% DW IV FOR... UD PRN IV 05/17/17 15:30 06/16/17 15:29 Glucagon (Glucagon Inj) 1 mg UD PRN SQ 05/17/17 15:30 06/16/17 15:29 Amlodipine Besylate (Norvasc Tab) 10 mg QAM PO 05/18/17 09:00 06/17/17 08:59 05/18/17 08:37 10 MG Hydralazine HCl (HydrALAZINE INJ) 10 mg Q6H PRN IV. 05/17/17 18:00 06/16/17 17:59 Lisinopril (Zestril Tab) 20 mg QAM PO 05/19/17 09:00 06/18/17 08:59 UNV Lisinopril (Zestril Tab) 20 mg NOW STAT PO 05/18/17 09:14 05/18/17 09:15 UNV Objective Vital Signs Date Time Temp Pulse Resp B/P (MAP) Pulse Ox O2 Delivery O2 Flow Rate FiO2 05/18/17 07:22 36.8 91 19 143/87 (105) 96 Room Air 05/18/17 03:24 36.8 93 16 128/78 (95) 91 Room Air 05/17/17 23:39 Room Air 05/17/17 22:58 36.8 93 16 146/77 (100) 96 Room Air 05/17/17 19:36 37.1 93 16 144/84 (104) 99 2.0 05/17/17 18:39 36.7 93 16 143/82 (102) 100 Nasal Cannula 2.0 05/17/17 17:30 36.4 80 18 141/91 (108) 97 Nasal Cannula 2.0 05/17/17 17:14 36.4 80 16 147/76 (99) 100 Nasal Cannula 3.0 05/17/17 16:30 97 Nasal Cannula 2.0 05/17/17 16:30 97 Nasal Cannula 2.0 05/17/17 16:30 36.5 73 18 136/73 (94) 97 Nasal Cannula 2.0 05/17/17 16:10 36.2 76 16 138/61 100 Nasal Cannula 2 05/17/17 16:00 36.2 76 16 130/57 100 Nasal Cannula 2 05/17/17 15:50 36.2 76 16 140/61 100 Nasal Cannula 2 05/17/17 15:40 77 16 146/72 100 Nasal Cannula 2 05/17/17 15:30 75 16 146/60 100 Oxymask 10 05/17/17 15:20 72 16 139/60 100 Oxymask 10 05/17/17 15:11 36.1 69 16 124/62 100 Oxymask 10 05/17/17 10:10 36.9 88 20 131/63 98 Room Air Physical Exam General Appearance: no apparent distress, + obese Eyes: normal inspection, EOMI, sclerae normal Neck: supple, no adenopathy, no JVD, trachea midline Respiratory/Chest: chest non-tender, lungs clear, normal breath sounds, no respiratory distress, no accessory muscle use Cardiovascular: regular rate, rhythm, no edema, no gallop, no JVD, no murmur Abdomen: normal bowel sounds, non tender, soft, no organomegaly Extremities: no pedal edema, no calf tenderness, normal capillary refill, pelvis stable, + pertinent finding (right shoulder tender, immobilized) 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, no motor/sensory deficits, alert, normal mood/affect, oriented x 3 Skin: normal color, warm/dry, no rash Laboratory Results Last 24 Hours Test 05/17/17 10:04 05/17/17 15:27 05/17/17 17:10 05/17/17 18:39 Bedside Glucose 144 mg/dl 87 mg/dl 100 mg/dl White Blood Count 14.06 K/uL Red Blood Count 4.41 M/uL Hemoglobin 12.0 g/dL Hematocrit 36.8 % Mean Corpuscular Volume 83.4 fL Mean Corpuscular Hemoglobin 27.2 pg Mean Corpuscular Hemoglobin Concent 32.6 g/dl RDW Standard Deviation 44.1 fL RDW Coefficient of Variation 14.4 % Platelet Count 166 K/uL Mean Platelet Volume 9.7 fL Sodium Level 140 mmol/L Potassium Level 3.8 mmol/L Chloride Level 103 mmol/L Carbon Dioxide Level 28 mmol/L Anion Gap 9.0 mmol/L Blood Urea Nitrogen 16 mg/dl Creatinine 0.83 mg/dl Est Creatinine Clear Calc Drug Dose 73.4 ml/min Estimated GFR () 81.7 Estimated GFR (Non- 70.4 BUN/Creatinine Ratio 19.2 Random Glucose 193 mg/dl Calcium Level 8.4 mg/dl Test 05/17/17 20:36 05/18/17 06:50 05/18/17 08:25 Bedside Glucose 221 mg/dl 218 mg/dl White Blood Count 9.78 K/uL Red Blood Count 4.26 M/uL Hemoglobin 11.6 g/dL Hematocrit 35.5 % Mean Corpuscular Volume 83.3 fL Mean Corpuscular Hemoglobin 27.2 pg Mean Corpuscular Hemoglobin Concent 32.7 g/dl RDW Standard Deviation 44.4 fL RDW Coefficient of Variation 14.6 % Platelet Count 150 K/uL Mean Platelet Volume 10.0 fL Sodium Level 138 mmol/L Potassium Level 3.9 mmol/L Chloride Level 104 mmol/L Carbon Dioxide Level 28 mmol/L Anion Gap 6.0 mmol/L Blood Urea Nitrogen 11 mg/dl Creatinine 0.77 mg/dl Est Creatinine Clear Calc Drug Dose 79.1 ml/min Estimated GFR () 89.4 Estimated GFR (Non- 77.1 BUN/Creatinine Ratio 13.8 Random Glucose 189 mg/dl Calcium Level 8.2 mg/dl Assessment and Plan 71 y/o female with a history of HTN, HLD, FE, asthma, DM II, RA, anxiety and depression, glaucoma, h/o iron deficiency anemia and GERD who presents s/p right TSA with Dr. Garay on 05/17 for medical management. S/p Right TSA--POD #1 -Pain management, DVT prophylaxis, and PT/OT as per primary team -plan for d/c on 05/20 per patient, going to rehab HTN--stable, systolic pressures in the 140's today and overnight -Cr stable this AM, safe to resume MIGUEL, will give Lisinopril 20mg daily since Benazepril non-formulary should resume Lotrel on discharge -Continue amlodipine 10 mg PO qd, Coreg 12.5 mg PO BID -Cover with hydralazine 10 mg IV q6h prn SBP >180 FE -CPAP at nighttime Asthma -Continue Advair BID and albuterol inhaler prn SOB/wheezing - lungs clear today, no distress, no hypoxia DM II--last HgbA1c checked 04/25/17 was 7.6 -Hold glimepiride and Trulicity while inpatient but resume on discharge -Insulin sliding scale -Check BSGs q ac and qhs - sugars in 200's, will tighten up coverage slightly, diabetic diet Anxiety and depression -Continue Ativan 0.5 mg PO BID prn anxiety Glaucoma -Continue latanoprost drops GERD -Nexium converted to Protonix 40 mg PO qd vitals stable, labs stable, will sign off at this time do not hesitate to page [phone] with any new issues
[2017-05-18] MEDS ORDERED: LISINOPRIL 20 MG TAB PO ONE (09:45)
--- NOTE | 2017-05-18 10:46 | Anesthesiology Progress Note ---
Anesthesia Post Op Note Date & Time May 18, 2017 at 10:45 Vital Signs Pain Intensity: 9.0 Vital Signs Past 12 Hours Date Time Temp Pulse Resp B/P (MAP) Pulse Ox O2 Delivery O2 Flow Rate FiO2 05/18/17 07:22 36.8 91 19 143/87 (105) 96 Room Air 05/18/17 03:24 36.8 93 16 128/78 (95) 91 Room Air 05/17/17 23:39 Room Air 05/17/17 22:58 36.8 93 16 146/77 (100) 96 Room Air Notes Mental Status: alert / awake / arousable, participated in evaluation Pt Amnestic to Procedure: Yes Nausea / Vomiting: adequately controlled Pain: adequately controlled Airway Patency, RR, SpO2: stable & adequate BP & HR: stable & adequate Hydration State: stable & adequate Anesthetic Complications: no major complications apparent
[2017-05-18 15:30] VITALS: BP 97/66; PULSE 87; TEMP 36.9; O2SAT 94
[2017-05-18] MEDS ORDERED: KETOROLAC TROMETHAMINE 15 MG/ML VIAL IV PRN (16:15)
[2017-05-18] MEDS: TRAMADOL HCL 50 MG TAB PO PRN (16:40)
[2017-05-18] MEDS: LATANOPROST 0.005% OP SOLN 2.5 ML BTL OPB SCH (21:19)
[2017-05-18 23:10] VITALS: BP 116/69; PULSE 85; TEMP 36.8; O2SAT 92
[2017-05-19] MEDS: ACETAMINOPHEN 500 MG TAB PO SCH ×3 (05:45→21:43)
[2017-05-19] MEDS: TRAMADOL HCL 50 MG TAB PO PRN ×3 (05:47→21:48)
[2017-05-19 06:19] LABS: HEMATOCRIT 35.6 % (37-47); MEAN CORPUSCULAR HEMOGLOBIN 27.2 pg (25-34); MEAN PLATELET VOLUME 9.6 fL (7.4-10.4); PLATELET COUNT 157 K/uL (130-400); RED BLOOD COUNT 4.19 M/uL (4.2-5.4); WHITE BLOOD COUNT 9.48 K/uL (4.8-10.8)
[2017-05-19 06:50] VITALS: BP 114/67; PULSE 90; TEMP 36.7; O2SAT 91
[2017-05-19 06:55] LABS: BUN/CREATININE RATIO 13.7 (10-20); POTASSIUM 3.8 mmol/L (3.5-5.1)
--- NOTE | 2017-05-19 07:33 | Orthopedic Progress Note ---
Orthopedic Progress Note Date of Service May 19, 2017. Subjective Post OP Day: 2 Reports: feeling well, pain controlled w PO medications, Denies: complaints, chest pain, SOB, nausea / vomiting, light headedness, calf pain Objective N/V intact, capillary refill less than 2 sec., incision C/D/I, A&O x3 Sling in tact, fingers mobile Date Time Temp Pulse Resp B/P (MAP) Pulse Ox O2 Delivery O2 Flow Rate FiO2 05/19/17 06:50 36.7 90 16 114/67 (83) 91 Room Air 05/19/17 00:17 Room Air 05/18/17 23:10 36.8 85 16 116/69 (85) 92 Room Air 05/18/17 15:30 36.9 87 18 97/66 (76) 94 Room Air 05/18/17 15:25 Room Air 05/18/17 08:30 Room Air Laboratory Results 24 Hours: Test 05/19/17 05:56 Hematocrit 35.6 % Hemoglobin 11.4 g/dL Assessment & Plan Assessment: POD #2, Right shoulder TSA, biceps tenodesis Plan: PT/ OT DVT proph- ASA Disposition- To [facility] per SS wont be able to go until Monday due to auth. As per medicine Inhouse Planning Pain Management: Morphine, PO Tylenol, Oxy IR DVT Prophylaxis: SCDs, ASA Discharge Planning Discharge Planning: care home facility Pain Management: PO Tylenol, Oxy IR DVT Prophylaxis: SCDs, ASA Therapy: Physical Therapy, Occupational Therapy
--- NOTE | 2017-05-19 07:37 | Discharge Instructions ---
Discharge Instructions Date of Service May 19, 2017. Admission Reason for Admission: Right Shoulder Degenerative Joint Disease Discharge Discharge Diagnosis / Problem: Right TSA, biceps tenodesis Discharge Goals Goal(s): Improve function Activity Recommendations Activity Level: Assistance Required . Additional Information Patient informed of condition: Yes Advance Directives: Yes DNR: No Level of Care: Skilled Communicable Disease: No Prognosis: Improving Phelps Catheter: No Instructions / Follow-Up Instructions / Follow-Up ACTIVITY RECOMMENDATIONS: SELF CARE INSTRUCTIONS AFTER TOTAL SHOULDER ARTHROPLASTY A. You may do daily exercises as taught in physical therapy while in hospital. No lifting with the operative arm. Please schedule your outpatient physical therapy appointment to begin within 2-3 days after leaving the hospital. Specific restrictions will be written on your physical therapy prescription that is provided to you. B. You are to wear your sling/immobilizer at all times EXCEPT when performing your daily exercises, participating in physical therapy and for hygiene purposes. C. You may perform dry, daily dressing changes. Please keep your incision covered. You may shower 48 hours after surgery. Do not apply soap or any ointment/ lotions directly over incision. Do not soak incision in bath tub/swimming pool. D. You may use ice as needed to operative shoulder. SPECIAL CARE INSTRUCTIONS: MEDICATION INSTRUCTIONS: *It is recommended you take Aspirin 325mg daily for four weeks post-op. VERY IMPORTANT TO READ AND REVIEW A. There are a few signs you need to watch for after you are home. Call [facility] at [phone] if you experience any of the followin. Increased severe shoulder pain. Some pain is expected especially when you exercise. 2. Increased swelling in you shoulder or arm; pain or swelling in either upper extremity. 3. Any fluid drainage from the incision. 4. Shortness of breath or chest pain. B. Please call [facility] at [phone] if you have any questions or concerns about your operation or recovery. C. Call your physician if: 1. Temperature is greater than 101 degrees (F). 2. Pain is not relieved by prescribed pain medications. 3. Increase drainage or redness from incision. 4. Unanswered questions or concerns. FOLLOW UP VISIT: Please call [facility] at [phone] to schedule a follow up appointment with Dr. Garay or his PA in 12-14 days from your surgery date. Current Hospital Diet Patient's current hospital diet: Diabetes Type 2 Diet Discharge Diet Recommended Diet: Diabetes Type 2 Diet Procedures Procedures Performed: Right Total Shoulder Arthroplasty,biceps tenodesis,increased difficulty due to obesity Pending Studies Studies pending at discharge: no Laboratory Results Hemoglobin A1c Test 04/25/17 12:03 Range/Units Estimated Average Glucose 171 mg/dl Hemoglobin A1c 7.6 H 4.5-5.6 % Medical Emergencies . Who to Call and When: Medical Emergencies: If at any time you feel your situation is an emergency, please call 911 immediately. . Non-Emergent Contact Non-Emergency issues call your: Primary Care Provider . . "Provider Documentation" section prepared by Bucky Martinez. . Core Measure Problem Core Measures: VTE VTE Core Measures Date of VTE Diagnosis: May 19, 2017 Time of VTE Diagnosis: 07:36 Reason no anticoag overlap I/P: Treatment provided - N/A Reason no anticoag overlap @DC: Treatment provided - N/A [place] Drug Monitoring Program Search Results: patient reviewed within database, no issues identified
[2017-05-19] MEDS: FLUTICASONE/SALMETEROL 250/50 (ADVAIR) 14 PUFF/1 INHALER INH SCH ×2 (09:00→21:41)
[2017-05-19] MEDS: DOCUSATE SODIUM 100 MG CAP PO SCH ×2 (09:04→21:42)
[2017-05-19] MEDS: CARVEDILOL 12.5 MG TAB PO SCH ×2 (09:04→21:42)
[2017-05-19] MEDS: CHOLECALCIFEROL 1000 INTER.UNIT TAB PO SCH (09:04)
[2017-05-19] MEDS: CALCIUM 600MG + VIT D 400 IU TAB PO SCH (09:04)
[2017-05-19] MEDS: BENAZEPRIL HCL 10 MG TAB PO SCH (09:05)
[2017-05-19] MEDS: AMLODIPINE BESYLATE 5 MG TAB PO SCH (09:05)
[2017-05-19] MEDS: LISINOPRIL 20 MG TAB PO SCH (09:06)
[2017-05-19] MEDS: ASPIRIN 81 MG ECTAB PO SCH (09:06)
[2017-05-19] MEDS: INSULIN ASPART 100 UNITS/ML 3 ML PEN SC SCH ×4 (09:06→21:00)
[2017-05-19] MEDS: PANTOprazole SOD 40 MG TAB PO SCH (09:06)
[2017-05-19] MEDS: MULTIVITAMIN TAB PO SCH (09:06)
[2017-05-19 16:24] VITALS: BP 136/73; PULSE 83; TEMP 37.2; O2SAT 93
[2017-05-19] MEDS: LATANOPROST 0.005% OP SOLN 2.5 ML BTL OPB SCH (21:41)
[2017-05-19 23:13] VITALS: BP 120/69; PULSE 83; TEMP 37; O2SAT 93
[2017-05-20] MEDS: ACETAMINOPHEN 500 MG TAB PO SCH (05:39)
[2017-05-20 06:55] VITALS: BP 109/67; PULSE 83; TEMP 36.8; O2SAT 94
--- NOTE | 2017-05-20 07:40 | Orthopedic Progress Note ---
Orthopedic Progress Note Date of Service May 20, 2017. Subjective Post OP Day: 3 Reports: feeling well Objective N/V intact (Fingers mobile), dressing C/D/I Date Time Temp Pulse Resp B/P (MAP) Pulse Ox O2 Delivery O2 Flow Rate FiO2 05/20/17 06:55 36.8 83 19 109/67 (81) 94 Room Air 05/19/17 23:35 Room Air 05/19/17 23:13 37.0 83 18 120/69 (86) 93 Room Air 05/19/17 16:24 37.2 83 17 136/73 (94) 93 Room Air 05/19/17 15:15 Room Air 05/19/17 08:00 Room Air Assessment & Plan Assessment: POD #23 Right shoulder TSA, biceps tenodesis Plan: PT/ OT DVT proph- ASA Disposition- To [facility] wont be able to go until Monday due to auth. As per medicine Inhouse Planning Pain Management: Morphine, PO Tylenol, Oxy IR DVT Prophylaxis: SCDs, ASA Discharge Planning Discharge Planning: prison facility Pain Management: PO Tylenol, Oxy IR DVT Prophylaxis: SCDs, ASA Therapy: Physical Therapy, Occupational Therapy
[2017-05-20] MEDS ORDERED: RXC5 PO (07:42)
[2017-05-20] MEDS ORDERED: ACET-24 PO (07:42)
[2017-05-20] MEDS: FLUTICASONE/SALMETEROL 250/50 (ADVAIR) 14 PUFF/1 INHALER INH SCH (08:45)
[2017-05-20] MEDS: LISINOPRIL 20 MG TAB PO SCH (08:46)
[2017-05-20] MEDS: CALCIUM 600MG + VIT D 400 IU TAB PO SCH (08:46)
[2017-05-20] MEDS: DOCUSATE SODIUM 100 MG CAP PO SCH (08:46)
[2017-05-20] MEDS: MULTIVITAMIN TAB PO SCH (08:46)
[2017-05-20] MEDS: ASPIRIN 81 MG ECTAB PO SCH (08:47)
[2017-05-20] MEDS: AMLODIPINE BESYLATE 5 MG TAB PO SCH (08:47)
[2017-05-20] MEDS: CARVEDILOL 12.5 MG TAB PO SCH (08:48)
[2017-05-20] MEDS: PANTOprazole SOD 40 MG TAB PO SCH (08:48)
[2017-05-20] MEDS: CHOLECALCIFEROL 1000 INTER.UNIT TAB PO SCH (08:48)
[2017-05-20] MEDS: INSULIN ASPART 100 UNITS/ML 3 ML PEN SC SCH (09:01)
[2017-05-20 10:49] VITALS: BP 109/67; PULSE 83; TEMP 36.8; O2SAT 94
== END 2017-05-20 11:15 | DRG 483 ==
LOC: C.ACU 09:14 → C.3E 11:52 → ENRESERV 16:01
PROVIDERS: ADMIT Orthopaedic Surgery Sports Medicine; ATTEND Orthopaedic Surgery Sports Medicine
PROC: 0LM10ZZ Reattachment of Right Shoulder Tendon, Open Approach (ICD-10-PCS; principal; 2017-05-17 11:50)
PROC: 0RRJ0JZ Replacement of Right Shoulder Joint with Synthetic Substitute, Open Approach (ICD-10-PCS; principal; 2017-05-17 11:50)
DX: M19.011 Primary osteoarthritis, right shoulder (principal); Z68.41 Body mass index [BMI] 40.0-44.9, adult; M65.811 Other synovitis and tenosynovitis, right shoulder; I10 Essential (primary) hypertension; J45.909 Unspecified asthma, uncomplicated; G47.30 Sleep apnea, unspecified; E11.9 Type 2 diabetes mellitus without complications; K21.9 Gastro-esophageal reflux disease without esophagitis; E66.01 Morbid (severe) obesity due to excess calories; Z79.899 Other long term (current) drug therapy; F41.9 Anxiety disorder, unspecified; F32.9 Major depressive disorder, single episode, unspecified

== ENCOUNTER → 2017-05-29 | Outpatient (CLI) | payer OTHER, BC ==
[~2017-05-29] MED LIST changes: +ACET-24 PO; -ACET325T96 PO; -ACETAMINOPHEN 500 MG TAB PO SCH; +AMLO10CA PO; -ATROPINE SULFATE 0.1 MG/ML 5ML SYR IV PRN; +CARV12.5 PO; -CeleBREX 200 MG CAP PO SCH; -EpHEDrine SULFATE INJ 50 MG/ML AMP IV PRN; -FAMOTIDINE 20 MG TAB PO SCH; -FENTANYL CITRATE INJ 50 MCG/1 ML 2 ML VIAL IV PRN; -GABAPENTIN 300 MG CAP PO SCH; -HYDR2.5L TOP; -LACTATED RINGER'S 1000ML 1,000 ML IV SCH; -LACTATED RINGER'S 1000ML IV SCH; -METOCLOPRAMIDE HCL 10 MG TAB PO SCH; -ONDANSETRON INJ 2 MG/ML 2 ML VIAL IV PRN; -OXYC-643 PO; -ROPIVACAINE 0.5% 5 MG/ML 30 ML VIAL ONE; +RXC5 PO; -VANCOMYCIN INJ 1,500 MG in SODIUM CHLORIDE 0.9% 500ML 500 ML IV SCH
[2017-05-29 15:35] LABS: URINE APPEARANCE CLEAR (CLEAR); URINE BILIRUBIN NEG (NEG); URINE COLOR DK YELLOW; URINE EPITHELIAL CELL AUTO 20-30 /lpf (0-5); URINE NITRITE NEG (NEG); URINE SPECIFIC GRAVITY 1.021 (1.000-1.030); UROBILINOGEN NEG (NEG)
[2017-05-29 15:37] LABS: MANUAL MICROSCOPIC REQUIRED? NO; REVIEW REQ? YES
== END | disposition home or self-care (01) ==
LOC: C.LABSPEC 14:31
PROVIDERS: ATTEND Internal Medicine Critical Care Medicine
DX: R31.9 Hematuria, unspecified (principal); R35.0 Frequency of micturition

== ENCOUNTER → 2017-06-23 | Outpatient (CLI) | payer OTHER, BC ==
[2017-06-23 13:04] LABS: BASO % 0.1 %; BASO ABS # 0.01 K/uL (0-0.2); COMPLETE YES; EOS % 3.2 %; HEMATOCRIT 36.2 % (37-47); IG% 0.4 %; LYMPH % 29.7 %; LYMPH ABS # 2.48 K/uL (1.2-3.4); MEAN CORPUSCULAR HEMOGLOBIN 26.1 pg (25-34); MEAN CORPUSCULAR HGB CONC 31.5 g/dl (32-36); MEAN PLATELET VOLUME 9.7 fL (7.4-10.4); MONO % 6.4 %; NEUT % 60.2 %; PLATELET COUNT 230 K/uL (130-400); RED BLOOD COUNT 4.36 M/uL (4.2-5.4); WHITE BLOOD COUNT 8.34 K/uL (4.8-10.8)
[2017-06-23 13:30] LABS: ALT/SGPT 22 U/L (12-78); AST/SGOT 21 U/L (15-37); BLOOD UREA NITROGEN 16 mg/dl (7-18); BUN/CREATININE RATIO 18.4 (10-20); CALCIUM 9.1 mg/dl (8.5-10.1); CARBON DIOXIDE 28 mmol/L (21-32); CHLORIDE 103 mmol/L (98-107); CREATININE 0.85 mg/dl (0.60-1.20); GLUCOSE 136 mg/dl (70-99); POTASSIUM 3.7 mmol/L (3.5-5.1); SODIUM 140 mmol/L (136-145)
[2017-06-23 13:33] LABS: ALB/GLOB RATIO 0.8 (0.9-2); ALKALINE PHOSPHATASE 86 U/L (45-117); CHOLESTEROL 240 mg/dl (0-200); CHOLESTEROL/HDL RATIO 4.8; HDL CHOLESTEROL 50 mg/dl; LDL CHOLESTEROL CALCULATED 155 mg/dl; TRIGLYCERIDES 175 mg/dl (0-150); VERY LOW DENSITY LIPOPROT CALC 35 mg/dl
--- NOTE | 2017-06-30 10:27 | CODING QUERY NO DIAGNOSIS ---
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 Please assist us with providing a diagnosis/symptom for the test(s) below: A diagnosis/symptom was not documented on your Order. A valid diagnosis/symptom is required to bill all insurances. Please remember that we are unable to code a diagnosis of rule out, probable, possible, questionable, or suspected. Tests that require a diagnosis: DOS: 06/23/17 * CBC WITH AUTO DIFFER DIAGNOSIS: * COMPREHENSIVE METABO DIAGNOSIS: * LIPID PROFILE FASTING DIAGNOSIS: Provider Signature: Date: Thank you Lexis Howell Health Information Management Once completed, please kindly fax back to [phone] For questions please call [phone]
== END | disposition home or self-care (01) ==
LOC: C.LABMFLN 08:34
PROVIDERS: ATTEND Internal Medicine Rheumatology
DX: M06.4 Inflammatory polyarthropathy (principal); Z79.899 Other long term (current) drug therapy; E78.5 Hyperlipidemia, unspecified

== ENCOUNTER → 2017-08-11 | Outpatient (CLI) | payer OTHER, BC ==
[2017-08-11 12:50] LABS: BASO % 0.3 %; BASO ABS # 0.02 K/uL (0-0.2); EOS % 2.4 %; EOS ABS # 0.18 K/uL (0-0.5); HEMATOCRIT 34.9 % (37-47); HEMOGLOBIN 10.6 g/dL (12.0-16.0); IG# 0.03 K/uL (0.00-0.02); LYMPH ABS # 1.58 K/uL (1.2-3.4); MEAN CELL VOLUME 82.7 fL (80-100); MEAN CORPUSCULAR HEMOGLOBIN 25.1 pg (25-34); MEAN CORPUSCULAR HGB CONC 30.4 g/dl (32-36); MEAN PLATELET VOLUME 9.8 fL (7.4-10.4); MONO % 6.6 %; NEUT % 69.3 %; NEUT ABS # 5.23 K/uL (1.4-6.5); PLATELET COUNT 191 K/uL (130-400); RED CELL DISTRIBUTION WIDTH SD 48.2 fL (36.4-46.3); WHITE BLOOD COUNT 7.54 K/uL (4.8-10.8)
[2017-08-11 13:06] LABS: HEMOGLOBIN A1C 7.3 % (4.5-5.6)
[2017-08-11 13:14] LABS: ALBUMIN 3.2 gm/dl (3.4-5.0); BLOOD UREA NITROGEN 19 mg/dl (7-18); CALCIUM 8.7 mg/dl (8.5-10.1); CARBON DIOXIDE 29 mmol/L (21-32); CREATININE 0.83 mg/dl (0.60-1.20); GLUCOSE 164 mg/dl (70-99); POTASSIUM 4.8 mmol/L (3.5-5.1); SODIUM 142 mmol/L (136-145)
[2017-08-11 13:26] LABS: PHOSPHORUS 3.5 mg/dl (2.5-4.9)
== END | disposition home or self-care (01) ==
LOC: C.LABMFLN 09:51
PROVIDERS: ATTEND Family Medicine
DX: E11.9 Type 2 diabetes mellitus without complications (principal); D64.9 Anemia, unspecified; R68.89 Other general symptoms and signs

== ENCOUNTER → 2017-09-19 | Outpatient (CLI) | payer OTHER, BC ==
--- NOTE | 2017-09-19 12:10 | DIAGNOSTIC IMAGING REPORT ---
R VENOUS DOPPLER UPR EXT UNIL HISTORY: Pain. Edema. RT ARM SHOULDER PAIN/SWELLING S/P REPLACEMENT COMPARISON STUDY: None. FINDINGS: The internal jugular vein is patent. There is normal flow within the subclavian vein. There is normal flow and compressibility within the left axillary, basilic, brachial, radial, ulnar, and visualized cephalic veins. IMPRESSION: No DVT within the upper extremity. The above report was generated using voice recognition software. It may contain grammatical, syntax or spelling errors. Electronically signed by: Bucky Galdamez M.D. 09/19/2017 12:08 PM Dictated Date/Time: 09/19/2017 12:04 PM
== END | disposition home or self-care (01) ==
LOC: C.ULTRBC 11:29
PROVIDERS: ATTEND Orthopaedic Surgery Sports Medicine
DX: M25.511 Pain in right shoulder (principal); M79.89 Other specified soft tissue disorders; Z96.611 Presence of right artificial shoulder joint

== ENCOUNTER → 2017-11-06 | Outpatient (CLI) | payer OTHER, BC ==
[2017-11-06 17:51] LABS: BASO % 0.1 %; BASO ABS # 0.01 K/uL (0-0.2); EOS % 1.3 %; EOS ABS # 0.09 K/uL (0-0.5); HEMATOCRIT 41.2 % (37-47); HEMOGLOBIN 12.9 g/dL (12.0-16.0); IG# 0.01 K/uL (0.00-0.02); MEAN CELL VOLUME 87.1 fL (80-100); MEAN CORPUSCULAR HEMOGLOBIN 27.3 pg (25-34); MEAN CORPUSCULAR HGB CONC 31.3 g/dl (32-36); MONO ABS # 0.49 K/uL (0.11-0.59); NEUT % 68.5 %; NEUT ABS # 4.77 K/uL (1.4-6.5); PLATELET COUNT 227 K/uL (130-400); RED CELL DISTRIBUTION WIDTH CV 15.5 % (11.5-14.5); RED CELL DISTRIBUTION WIDTH SD 49.7 fL (36.4-46.3); WHITE BLOOD COUNT 6.97 K/uL (4.8-10.8)
[2017-11-06 18:22] LABS: ALBUMIN 3.5 gm/dl (3.4-5.0); ALT/SGPT 29 U/L (12-78); AST/SGOT 20 U/L (15-37); BLOOD UREA NITROGEN 16 mg/dl (7-18); CALCIUM 9.1 mg/dl (8.5-10.1); CARBON DIOXIDE 27 mmol/L (21-32); CREATININE 0.84 mg/dl (0.60-1.20); GLUCOSE 107 mg/dl (70-99); POTASSIUM 3.9 mmol/L (3.5-5.1); SODIUM 140 mmol/L (136-145); TOTAL PROTEIN 7.4 gm/dl (6.4-8.2)
[2017-11-06 18:23] LABS: ALKALINE PHOSPHATASE 72 U/L (45-117); CHOLESTEROL 264 mg/dl (0-200); LDL CHOLESTEROL (DIRECT) 185 mg/dl
[2017-11-07 06:12] LABS: HEMOGLOBIN A1C 6.7 % (4.5-5.6)
== END | disposition home or self-care (01) ==
LOC: C.LABMFLN 11:34
PROVIDERS: ATTEND Family Medicine
DX: Z51.81 Encounter for therapeutic drug level monitoring (principal); Z79.899 Other long term (current) drug therapy; E11.9 Type 2 diabetes mellitus without complications

== ENCOUNTER → 2017-12-13 | Outpatient (CLI) | payer OTHER, BC | END | disposition home or self-care (01) | LOC: C.LABMFLN 15:07 | PROVIDERS: ATTEND Internal Medicine Rheumatology | DX: Z51.81 Encounter for therapeutic drug level monitoring (principal); L40.50 Arthropathic psoriasis, unspecified; Z79.899 Other long term (current) drug therapy ==